=== PATIENT | male | born 1980 | race Caucasian/White ===

== ENCOUNTER 2019-01-28 10:53 | Emergency (ER) | payer MEDICAID ==
[~2019-01-28] VITALS: Ht 160 cm; Wt 61.2 kg
[2019-01-28 10:59] VITALS: Ht 160 cm; Wt 61.2 kg
[2019-01-28 15:02] VITALS: BP 144/82
== END 2019-01-28 15:02 | disposition home or self-care (01) ==
LOC: ED 10:53
DX: L21.9 Seborrheic dermatitis, unspecified (principal); L73.9 Follicular disorder, unspecified; F17.210 Nicotine dependence, cigarettes, uncomplicated; Z71.6 Tobacco abuse counseling
CPT/HCPCS: 99406